=== PATIENT | female | born 1995 | race American Indian/Alaskan Native ===

== ENCOUNTER 2019-06-28 16:52 | Emergency (ER) | payer OTHER, MEDICAID ==
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
[2019-06-28 21:14] VITALS: BP 99/61
[2019-06-28] MEDS ORDERED: KETOROLAC 30 MG/1 ML INJ IM ONE (22:05)
[2019-06-28] MEDS ORDERED: KETOROLAC 30 MG/1 ML INJ ONE (22:07)
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
== END 2019-06-28 22:40 | disposition home or self-care (01) ==
LOC: ED 16:52
DX: S16.1XXA Strain of muscle, fascia and tendon at neck level, initial encounter (principal); S46.812A Strain of other muscles, fascia and tendons at shoulder and upper arm level, left arm, initial encounter; Z79.899 Other long term (current) drug therapy; Z88.5 Allergy status to narcotic agent; V49.49XA Driver injured in collision with other motor vehicles in traffic accident, initial encounter; Y93.89 Activity, other specified; Y92.410 Unspecified street and highway as the place of occurrence of the external cause; Y99.8 Other external cause status
CPT/HCPCS: 72040; 72070; 96372; 99283; J1885